=== PATIENT | male | born 1990 | race Hispanic/Latino ===

== ENCOUNTER 2017-10-29 10:50 | Outpatient (CLI) | payer BC ==
--- NOTE | 2017-10-29 11:49 | RAD ---
PA AND LATERAL CHEST: History: Pneumonia, cough. FINDINGS: Heart size and mediastinum are within normal limits. The lungs appear clear of any infiltrative proce ss. No significant bony findings. IMPRESSION: No active intrathoracic disease. POS: [id number]
== END 2017-10-29 10:51 | disposition home or self-care (01) ==
LOC: RAD 10:50
PROVIDERS: ATTEND Family Medicine
DX: J18.9 Pneumonia, unspecified organism (principal)
CPT/HCPCS: 36415; 71020; 80053; 80061

== ENCOUNTER 2018-09-24 20:17 | Emergency (ER) | payer BC ==
[2018-09-24] MEDS ORDERED: Dexamethasone 10 MG/ML VIAL ONE (21:23)
== END 2018-09-24 21:30 | disposition home or self-care (01) ==
LOC: ERS 20:17
DX: J45.901 Unspecified asthma with (acute) exacerbation (principal); Z77.22 Contact with and (suspected) exposure to environmental tobacco smoke (acute) (chronic)
CPT/HCPCS: 99284; J1100; J7620